=== PATIENT | male | born 1940 | race Two or more races ===

== ENCOUNTER 2019-06-13 22:41 | Emergency (ER) | payer MEDICARE ==
[~2019-06-13] VITALS: Ht 170.2 cm; Wt 84.1 kg
[2019-06-13] MEDS ORDERED: TETRACAINE HCL/PF 0.5% 4 ML OPHTHALMIC SOLUTION OS ONE (23:15)
[2019-06-13] MEDS ORDERED: FLUORESCEIN SODIUM 1 MG STRIP ONE (23:26)
[2019-06-13] MEDS ORDERED: ACETAMINOPHEN 325 MG TABLET PO ONE (23:30)
[2019-06-14 00:50] VITALS: BP 130/69
== END 2019-06-14 01:22 | disposition home or self-care (01) ==
LOC: EMS 22:43
DX: H11.32 Conjunctival hemorrhage, left eye (principal)
CPT/HCPCS: 70486